=== PATIENT | female | born 1970 | race African-American/Black ===

== ENCOUNTER 2017-02-22 09:17 | Emergency (ER) | payer BC, OTHER ==
[~2017-02-22] VITALS: Ht 162.6 cm; Wt 96.2 kg
--- NOTE | ~2017-02-22 | EKG ---
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
--- NOTE | ~2017-02-22 | EKG ---
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1970 Requested By: Nelly Saldana Order Number: [id number] MD: Sanjiv Ross Measurements Intervals [place] Rate: 65 P: 18 MS: 140 QRS: 27 QRSD: 93 T: 23 QT: 411 QTc: 428 Interpretive Statements Sinus rhythm RSR' in V1 or V2, probably normal variant Minimal ST elevation, inferior leads No previous ECG available for comparison Electronically Signed On 02-23-2017 7:54:33 CDT by Sanjiv Ross [email or web address] <ELECTRONICALLY SIGNED> By: Sanjiv Ross MD, [facility] 02/23/17 0754 1135 1135 Sanjiv Ross MD, FACC /EPI
[~2017-02-22 09:17] MED LIST: NORCO 5-325 TA1 EACH PO
[2017-02-22] MEDS ORDERED: UNICOMPLEX M TA1 TA1 PO (09:32)
[2017-02-22 09:36] LABS: ABSOLUTE NEUTROPHILS 5.3 thou/uL (1.4-8.2); BASOPHILS 0.7 % (0.0-2.0); EOSINOPHILS 1.9 % (0.0-3.0); HEMATOCRIT 43.3 % (37.0-47.0); HEMOGLOBIN 14.5 gm/dL (12.0-15.0); LYMPHOCYTES 32.7 % (24.0-44.0); MCH 29.1 pg (26.0-34.0); MCHC 33.6 g/dL (28.0-37.0); MCV 86.7 fL (80.0-100.0); MONOCYTES 6.6 % (1.0-8.0); PLATELET COUNT 185 thou/uL (150-400); POLYS 58.1 % (36.0-66.0); RBC 4.99 mil/uL (4.20-5.00); RDW 12.9 % (10.5-14.5); WBC 9.1 thou/uL (4.0-11.0)
[2017-02-22 09:37] LABS: MANUAL DIFF NO
[2017-02-22 09:49] LABS: ANION GAP 9 mmol/L (7-16); BUN 16 mg/dL (7-18); CALCIUM 9.3 mg/dL (8.5-10.1); CHLORIDE 104 mmol/L (98-107); CO2 26 mmol/L (21-32); CREATININE 1.3 mg/dL (0.6-1.0); GLUCOSE 97 mg/dL (74-106); POTASSIUM 3.7 mmol/L (3.5-5.1); SODIUM 139 mmol/L (136-145)
[2017-02-22 09:56] LABS: ALBUMIN 3.7 g/dL (3.4-5.0); ALKALINE PHOSPHATASE 88 U/L (46-116); SGOT 22 U/L (15-37); SGPT 26 U/L (30-65); TOTAL BILIRUBIN 0.4 mg/dL (<0.1-1.0); TOTAL PROTEIN 7.4 g/dL (6.4-8.2); TROPONIN-I < 0.04 ng/mL (<0.04-0.07)
[2017-02-22 10:01] LABS: URINE BILIRUBIN NEGATIVE (Negative); URINE BLOOD NEGATIVE (Negative); URINE COLOR YELLOW; URINE GLUCOSE-RANDOM* NEGATIVE (Negative); URINE KETONES NEGATIVE (Negative); URINE NITRITE NEGATIVE (Negative); URINE PROTEIN (DIPSTICK) NEGATIVE (Negative); URINE SPECIFIC GRAVITY <= 1.005 (1.003-1.035); URINE UROBILINOGEN 0.2 E.U./dl (0.2-1.0)
[2017-02-22] MEDS ORDERED: PEPCID20 MG PO (11:55)
[2017-02-22 12:27] VITALS: BP 108/71
== END 2017-02-22 12:28 | disposition home or self-care (01) ==
LOC: ER 09:17
PROVIDERS: Physician Assistant
DX: R07.89 Other chest pain (principal); R12 Heartburn; Z90.710 Acquired absence of both cervix and uterus; E66.9 Obesity, unspecified; Z88.0 Allergy status to penicillin